=== PATIENT | female | born 1980 | race Caucasian/White ===

== ENCOUNTER 2024-02-01 11:44 | Emergency (ER) | payer MEDICAID ==
[~2024-02-01] VITALS: Ht 170.1 cm; Wt 81.6 kg
[2024-02-01] MEDS ORDERED: methylPREDNISolone sod succ 125 MG VIAL IM ONE (12:25)
[2024-02-01] MEDS ORDERED: Albuterol Sulf/Ipratropium 3 ML VIAL NEB ONE (12:25)
[2024-02-01] MEDS ORDERED: PREDNISONE20 M1 PO (13:01)
[2024-02-01] MEDS ORDERED: AVPAK AZITHROM250 M1 PO (13:01)
[2024-02-01] MEDS ORDERED: AZITHROMYCIN 250 MG TAB PO ONE (13:05)
[2024-02-01] MEDS ORDERED: ALBUTEROL 8 GM INHALER INH ONE (13:05)
== END 2024-02-01 13:18 | disposition home or self-care (01) ==
LOC: ED 11:44
DX: J44.1 Chronic obstructive pulmonary disease with (acute) exacerbation (principal); T14.8XXA Other injury of unspecified body region, initial encounter; J45.909 Unspecified asthma, uncomplicated; F17.200 Nicotine dependence, unspecified, uncomplicated; Z88.8 Allergy status to other drugs, medicaments and biological substances; W57.XXXA Bitten or stung by nonvenomous insect and other nonvenomous arthropods, initial encounter; Y93.89 Activity, other specified; Y92.89 Other specified places as the place of occurrence of the external cause; Y99.8 Other external cause status

== ENCOUNTER 2025-08-06 12:51 | Emergency (ER) | payer OTHER ==
[~2025-08-06] VITALS: Ht 170.1 cm; Wt 82.3 kg
[~2025-08-06 12:51] MED LIST: AVPAK AZITHROM250 M1 PO; PREDNISONE20 M1 PO
[2025-08-06] MEDS ORDERED: HYDROCODONE-AC1 EAC1 PO (19:37)
[2025-08-06] MEDS ORDERED: PREDNISONE20 M1 PO (19:37)
[2025-08-06] MEDS ORDERED: Acetaminophen/Hydrocodone 5 MG/325 MG TABLET PO ONE (19:40)
[2025-08-06] MEDS ORDERED: predniSONE 20 MG TAB PO ONE (19:45)
== END 2025-08-06 20:00 | disposition home or self-care (01) ==
LOC: ED 12:51
DX: S46.912A Strain of unspecified muscle, fascia and tendon at shoulder and upper arm level, left arm, initial encounter (principal); J45.909 Unspecified asthma, uncomplicated; F17.200 Nicotine dependence, unspecified, uncomplicated; X58.XXXA Exposure to other specified factors, initial encounter; Y93.89 Activity, other specified; Y92.89 Other specified places as the place of occurrence of the external cause; Y99.8 Other external cause status